=== PATIENT | male | born 1970 | race Caucasian/White ===

== ENCOUNTER 2019-01-03 15:24 | Emergency (ER) | payer OTHER ==
[~2019-01-03] VITALS: Ht 167.6 cm; Wt 95.7 kg
[~2019-01-03 15:24] MED LIST: ADDERALL 30 MG30 MG PO; SEROQUEL 50 MG50 MG PO
[2019-01-03 15:58] LABS: ABSOLUTE NEUTROPHILS 5.6 thou/uL (1.4-8.2); BASOPHILS 0.8 % (0.0-2.0); EOSINOPHILS 9.3 % (0.0-3.0); HEMOGLOBIN 12.3 gm/dL (14.0-18.0); LYMPHOCYTES 16.1 % (24.0-44.0); MCH 27.5 pg (26.0-34.0); MCHC 33.2 g/dL (28.0-37.0); MONOCYTES 3.3 % (1.0-8.0); PLATELET COUNT 257 thou/uL (150-400); POLYS 70.5 % (36.0-66.0); RBC 4.46 mil/uL (4.50-6.00); RDW 16.1 % (10.5-14.5)
[2019-01-03 16:05] LABS: CALCIUM 8.9 mg/dL (8.5-10.1); CREATININE 1.1 mg/dL (0.7-1.3); POTASSIUM 4.5 mmol/L (3.5-5.1)
[2019-01-03 16:11] LABS: ALBUMIN 3.8 g/dL (3.4-5.0); TOTAL BILIRUBIN 0.1 mg/dL (<0.1-1.0); TOTAL PROTEIN 7.4 g/dL (6.4-8.2)
[2019-01-03 16:13] LABS: URINE BILIRUBIN NEGATIVE (Negative); URINE BLOOD NEGATIVE (Negative); URINE CLARITY CLEAR; URINE COLOR YELLOW; URINE GLUCOSE-RANDOM* NEGATIVE (Negative); URINE KETONES NEGATIVE (Negative); URINE LEUKOCYTES-REFLEX NEGATIVE (Negative); URINE NITRITE-REFLEX NEGATIVE (Negative); URINE PROTEIN (DIPSTICK) NEGATIVE (Negative); URINE UROBILINOGEN 0.2 E.U./dl (0.2-1.0)
[2019-01-03 16:29] VITALS: BP 113/74
[2019-01-03] MEDS ORDERED: BENTYL 20 MG TA20 M1 PO (17:45)
--- NOTE | 2019-01-04 07:33 | EKG ---
[place] [address] [facility] [place] [address] ELECTROCARDIOGRAM REPORT Name: JONATHAN BARTLETT Room #: [facility]#: [id number] ������������������ Admission: 01/03/19 ������������������ Attend Phys: Discharge: 01/03/19 ������������������ Date of : 68 Report #: [id number] ����������������������������������������������������������������� [id number] THIS REPORT FOR: //name// [facility] ED Test Date: 2019-01-03 Test Time: 15:45:43 Pat Name: JONATHAN BARTLETT Department: Room: Gender: 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1970 Requested By: Rafal Alonso Order Number: [id number] MD: Rodrigo Wan Measurements Intervals [place] Rate: 102 P: 72 [place]: 142 QRS: -67 QRSD: 91 T: 54 QT: 344 QTc: 449 Interpretive Statements Sinus tachycardia Abnormal R-wave progression, early transition Inferior infarct, old No previous ECG available for comparison Electronically Signed On 01-04-2019 7:33:18 CDT by Rodrigo Wan [email or web address] ��������������������������������������������� <ELECTRONICALLY SIGNED> ���������������������������������������� By: Rodrigo Wan MD, [facility] ��������������������������������������������� 01/04/19 0733 1545 1545 Rodrigo Wan MD, FACC /EPI
== END 2019-01-03 18:05 | disposition home or self-care (01) ==
LOC: ER 15:24
PROVIDERS: Emergency Medicine
DX: R10.11 Right upper quadrant pain (principal); J44.9 Chronic obstructive pulmonary disease, unspecified; F20.0 Paranoid schizophrenia; F32.9 Major depressive disorder, single episode, unspecified; J96.11 Chronic respiratory failure with hypoxia; F17.210 Nicotine dependence, cigarettes, uncomplicated; Z88.8 Allergy status to other drugs, medicaments and biological substances

== ENCOUNTER 2019-01-22 09:51 | Inpatient (IN) | payer OTHER ==
[2019-01-22] VITALS (8 sets, daily range): BP systolic 128–153; BP diastolic 86–101
[~2019-01-22] VITALS: Ht 170.2 cm; Wt 98.0 kg
[~2019-01-22 09:51] MED LIST changes: +BENTYL 20 MG TA20 M1 PO
[2019-01-22 10:27] LABS: ABSOLUTE NEUTROPHILS 7.4 thou/uL (1.4-8.2); BASOPHILS 0.4 % (0.0-2.0); EOSINOPHILS 11.8 % (0.0-3.0); HEMATOCRIT 35.1 % (42.0-52.0); HEMOGLOBIN 11.5 gm/dL (14.0-18.0); LYMPHOCYTES 11.2 % (24.0-44.0); MCH 26.7 pg (26.0-34.0); MCHC 32.9 g/dL (28.0-37.0); MCV 81.3 fL (80.0-100.0); MONOCYTES 4.1 % (1.0-8.0); PLATELET COUNT 506 thou/uL (150-400); POLYS 72.5 % (36.0-66.0); RBC 4.32 mil/uL (4.50-6.00); WBC 10.3 thou/uL (4.0-11.0)
[2019-01-22 10:32] LABS: URINE BILIRUBIN NEGATIVE (Negative); URINE BLOOD NEGATIVE (Negative); URINE CLARITY CLEAR; URINE COLOR YELLOW; URINE GLUCOSE-RANDOM* NEGATIVE (Negative); URINE KETONES NEGATIVE (Negative); URINE LEUKOCYTES-REFLEX NEGATIVE (Negative); URINE NITRITE-REFLEX NEGATIVE (Negative); URINE UROBILINOGEN 0.2 E.U./dl (0.2-1.0)
[2019-01-22 10:37] LABS: CREATININE 0.8 mg/dL (0.7-1.3); POTASSIUM 4.8 mmol/L (3.5-5.1)
[2019-01-22 10:47] LABS: ALBUMIN 3.5 g/dL (3.4-5.0); TOTAL BILIRUBIN 0.3 mg/dL (<0.1-1.0); TROPONIN-I 0.12 ng/mL (<0.06)
[2019-01-22 10:55] LABS: SSA (PROTEIN CONFIRMATORY) TRACE (APPROX. 5) mg/dL (Negative); URINE PROTEIN (DIPSTICK) TRACE (Negative)
--- NOTE | 2019-01-22 12:16 | EKG ---
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1970 Requested By: Baldev Blackwell Order Number: [id number] MD: Antwon Ward Measurements Intervals [place] Rate: 95 P: 84 [place]: 147 QRS: -56 QRSD: 93 T: 64 QT: 355 QTc: 447 Interpretive Statements Sinus rhythm Left axis deviation Low voltage, extremity leads Abnormal R-wave progression, early transition Abnormal inferior Q waves Compared to ECG 01/03/2019 15:45:43 Electronically Signed On 01-22-2019 12:16:47 CDT by Antwon Ward [email or web address] ��������������������������������������������� <ELECTRONICALLY SIGNED> ���������������������������������������� By: Antwon Ward MD ��������������������������������������������� 01/22/19 1216 105 51 Antwon Ward MD /IVETTE
[2019-01-22 12:57] LABS: BE(vivo) 2.1 mmol/L (-2 to +3); HCO3 27.6 mmol/L (22.0-26.0); PCO2 47.1 mmHg (35.0-45.0); PO2 71.5 mmHg (80.0-100.0); pH 7.386 (7.360-7.450); sO2 94.1 % (92.0-98.0)
[2019-01-23 03:16] VITALS: BP 136/91
[2019-01-23 07:52] VITALS: BP 127/81
[2019-01-23 11:24] VITALS: BP 138/93
[2019-01-23 15:00] VITALS: BP 124/80
[2019-01-23 19:05] VITALS: BP 138/84
[2019-01-24 03:14] VITALS: BP 106/53
[2019-01-24 05:58] LABS: POTASSIUM 4.6 mmol/L (3.5-5.1)
[2019-01-24 07:03] VITALS: BP 123/89
[2019-01-24 11:24] VITALS: BP 129/63
[2019-01-24 15:05] VITALS: BP 117/70
[2019-01-24 19:08] VITALS: BP 121/79
[2019-01-25 04:00] VITALS: BP 112/66
[2019-01-25 05:34] LABS: CALCIUM 9.8 mg/dL (8.5-10.1); CREATININE 0.9 mg/dL (0.7-1.3); POTASSIUM 4.9 mmol/L (3.5-5.1)
[2019-01-25 08:13] VITALS: BP 124/78
[2019-01-25] MEDS ORDERED: PREDNISONE 10 M10 MG PO (08:32)
[2019-01-25] MEDS ORDERED: DOXYCYCLINE 10100 MG PO (08:32)
[2019-01-25] MEDS ORDERED: DALMANE15 MG PO (08:37)
[2019-01-25] MEDS ORDERED: ALPRAZOLAM 0.50.5 MG PO (08:37)
[2019-01-25 11:11] VITALS: BP 109/67
[2019-01-25 16:36] VITALS: BP 123/89
[2019-01-25 19:15] VITALS: BP 133/82
== END 2019-01-25 20:00 | disposition hospice, inpatient (51) | DRG 189 ==
LOC: ER 09:51 → EROBS 12:36 → 3W 13:17
PROVIDERS: Emergency Medicine; Hospitalist; Internal Medicine Pulmonary Disease; Nurse Practitioner; ADMIT Internal Medicine
DX: J96.21 Acute and chronic respiratory failure with hypoxia (principal); J44.1 Chronic obstructive pulmonary disease with (acute) exacerbation; E87.1 Hypo-osmolality and hyponatremia; F11.20 Opioid dependence, uncomplicated; E87.2 Acidosis; F32.9 Major depressive disorder, single episode, unspecified; F20.9 Schizophrenia, unspecified; G89.4 Chronic pain syndrome; F95.2 Tourette's disorder; F60.2 Antisocial personality disorder; Z66 Do not resuscitate; D72.1 Eosinophilia; R91.1 Solitary pulmonary nodule; G47.00 Insomnia, unspecified; R53.83 Other fatigue; Z80.8 Family history of malignant neoplasm of other organs or systems; Z87.891 Personal history of nicotine dependence; Z88.8 Allergy status to other drugs, medicaments and biological substances; Z83.3 Family history of diabetes mellitus; Z82.49 Family history of ischemic heart disease and other diseases of the circulatory system; Z79.899 Other long term (current) drug therapy
CPT/HCPCS: 10879